=== PATIENT | female | born 1990 | race Caucasian/White ===

== ENCOUNTER → 2023-01-31 14:16 | Outpatient (CLI) | payer OTHER, SELFPAY ==
[2023-01-31 15:30] LABS: Add Manual Diff / Slide Review NO; Basophils Absolute Auto 0 /uL (0-100); Basophils Percent Auto 0.1 % (0-2); Eosinophils Absolute Auto 100 /uL (0-450); Eosinophils Percent Auto 1.2 % (2-4); Hematocrit 42.3 % (36-46); Hemoglobin 14.4 g/dL (12.0-16.0); Lymphocytes Absolute Auto 2500 /uL (1100-4500); Lymphocytes Percent Auto 32.2 % (25-40); Mean Corpuscular HGB Conc 33.9 % (30-36); Mean Corpuscular Hemoglobin 30.9 PG (26-34); Monocytes Absolute Auto 800 /uL (0-900); Monocytes Percent Auto 10.6 % (3-14); Neutrophils Absolute Auto 4400 /uL (1500-7000); Neutrophils Percent Auto 55.9 % (50-75); Platelet Count 226 X10^3/uL (150-400); Red Blood Cell Count 4.65 X10^6/uL (4.0-5.2); Red Cell Distribution Width 12.4 % (11.6-14.8); White Blood Cell Count 7.9 X10^3/uL (4.5-11.0)
[2023-01-31 15:38] LABS: Hemoglobin A1C% w Est Avg Glu 5.3 % (4.0-6.0)
[2023-01-31 15:41] LABS: Alanine Aminotransferase 23 IU/L (<35); Albumin 4.6 g/dL (3.5-5.0); Albumin Globulin Ratio 1.4 (1.0-2.8); Alkaline Phosphatase 59 U/L (38-126); Aspartate Aminotransferase 28 IU/L (14-36); Bilirubin Total 0.2 mg/dL (0.2-1.3); Blood Urea Nitrogen 16 mg/dL (7-17); Calcium 9.7 mg/dL (8.4-10.2); Carbon Dioxide 29 mmol/L (22-32); Chloride 101 mmol/L (98-107); Estimated Glomerular Filt Rate > 60 mL/min (>60); Globulin 3.3 g/dL (1.7-4.1); Glucose 84 mg/dL (70-100); HEMOLYSIS 20 (0-50); Potassium 4.2 mmol/L (3.4-5.1); Sodium 138 mmol/L (137-145); Total Protein 7.9 g/dL (6.3-8.2)
[2023-01-31 15:56] LABS: Prolactin 21.8 ng/mL (3.0-18.6)
[2023-01-31 17:33] LABS: Pregnancy Test Serum,Qual Negative (Negative)
[2023-01-31 17:40] LABS: Free T4, Direct Thyroxine 1.01 ng/dL (0.78-2.19)
[2023-01-31 17:54] LABS: Thyroid Stimulating Hormone 1.24 uIU/mL (0.47-4.68)
[2023-01-31 18:45] LABS: Follicle Stimulating Hormone 3.88 mIU/mL; Luteinizing Hormone 23.4 mIU/mL
[2023-01-31 19:00] LABS: Estradiol, Total 273.4 pg/mL
== END ==
PROVIDERS: PCP Obstetrics & Gynecology; Referring Provider Advanced Practice Midwife; Visit Provider Advanced Practice Midwife
DX: N91.1 Secondary amenorrhea (principal)
CPT/HCPCS: 36415; 80053; 82670; 83001; 83002; 83036; 84144; 84146; 84403; 84439; 84443; 84703; 85025